=== PATIENT | male | born 1925 | race Caucasian/White ===

== ENCOUNTER 2016-06-28 10:53 | Observation (INO) ==
[2016-06-28 11:36] LABS: Basophils % 0.2 % (0.0-0.8); Eosinophils # 0.1 10*3/uL (0.0-0.87); Eosinophils % 1.2 % (0.00-10.9); Hematocrit 36.7 VOL% (42.0-52.0); Hemoglobin 12.1 GM/DL (14.0-18.0); Immature Granulocytes % 0.8 %; Immature Granulocytes Absolute 0.04 #; Lymphocytes # 1.5 10*3/uL (1.4-4.0); Lymphocytes % 29.5 % (21.2-54.2); Mean Corpuscular Hemoglobin 29 PG (27-34); Mean Corpuscular Volume 86.8 FL (87-102); Mean Platelet Volume 8.7 FL (9.6-12.0); Monocytes # 0.5 10*3/uL (0.11-0.8); Neutrophils % 59.3 % (38.7-73.9); Platelet Count 204 T/CUMM (130-400); Red Blood Count 4.23 MC/CUMM (3.8-5.5)
[2016-06-28 11:38] LABS: Apearance,Urine CLEAR (Clear); Bilirubin,Urine Negative (Negative); Blood, Urine Negative (Negative); Glucose,Urine (UA) Negative (Negative); Ketones,Urine 5 mg/dL (Negative); Nitrite,Urine Negative (Negative); Protein,Urine Negative; RBC,Urine <1 /HPF (0-4); Urine Color Yellow (Yellow); Urine Specific Gravity 1.012 (1.001-1.035); WBC,Urine 1 /HPF (0-6)
--- NOTE | 2016-06-28 11:57 | XRay Report ---
History: Conductive cough Date: 06/28/2016 Study: Chest x-ray PA and lateral Comparison exam: December 04, 2012 chest x-ray The cardiac silhouette is not enlarged. There is no mediastinal mass. There is mild aortic arch calcification. The pulmonary vasculature is not engorged. There is no pleural effusion. There are some occasional scattered emphysematous changes. There is mild platelike scar or subsegmental atelectasis in the right lower lung. There is osteopenia and thoracic spondylosis Impression: Mild platelike subsegmental atelectasis or scar right lower lung. No definite acute process PROCEDURE INTERPRETED AT [facility] DEPARTMENT OF RADIOLOGY Final Report Signed by: Dr. Charmaine Fierro
[2016-06-28 11:58] LABS: Albumin 3.4 G/DL (3.4-5.0); Bilirubin,Total 0.9 MG/DL (0.2-1.0); Osmolality,Calculated 283.4 MOS/KG (273-304); Potassium 3.9 MMOL/L (3.5-5.1); Total Protein 6.9 G/DL (6.4-8.3)
--- NOTE | 2016-06-28 12:28 | Emergency Department Note ---
Arrival - Arrival Chief Complaint: Nausea/Vomiting/Diarrhea Stated Complaint: nausea-vomiting ED Nursing Triage Note: SEEN BY DR ROLAND YESTERDAY-PLACED ON AMOXICILLIN-NOW REPORTS NAUSEA WITHOUT VOMITING-NO SOB NOTED-ALERT Mode of Arrival: Stretcher Source: Patient Time Seen by Provider: 06/28/16 11:04 - History of Present Illness HPI Narrative: 89 y/o white male presents to the ER complaining of cough, congestion, N/V/D, decreased appetite, and generalized weakness. Symptoms starting 1-2 days ago. He was seen by Dr. Roland 2 days ago and started on Amoxil for URI with little improvement. Patient states "I think I need to be admitted into the hospital". Denies chest pain or dyspnea. Past medical history significant for HTN and Crohns. PCP: Dr. Roland GI: Dr. Fierro. Onset (ago): day(s) (2) Severity: mild Quality: aching Allergies/Adverse Reactions: Allergies Allergy/AdvReac Type Severity Reaction Status Date / Time Sulfa (Sulfonamide Allergy Intermediate RASH Verified 08/29/14 08:35 Antibiotics) Home Medications: Home Medications Medication Instructions Recorded Confirmed Type Levothyroxine Tab [Synthroid Tab] 88 mcg PO DAILY@0700 08/29/14 06/28/16 History clonazePAM [Klonopin] 1 mg PO PRN PRN 08/29/14 06/28/16 History rOPINIRole [Requip] 2 mg PO BEDTIME 08/29/14 06/28/16 History Aspirin/Calcium Carbonate/Mag 325 mg PO DAILY 11/06/15 06/28/16 History [Aspirin Buffered 325 mg Tab] Diltiazem Cd Cap [Cardizem CD] 240 mg PO DAILY 11/06/15 06/28/16 History Esomeprazole Magnesium [Nexium] 40 mg PO DAILY 11/06/15 06/28/16 History Fenofibrate [Tricor] 145 mg PO DAILY 11/06/15 06/28/16 History Hydrocortisone [Hydrocortisone Tab] 10 mg PO BID 11/06/15 06/28/16 History Magnesium Chloride [Slow Mag] 64 mg PO DAILY 11/06/15 06/28/16 History Valsartan [Diovan] 160 mg PO DAILY 11/06/15 06/28/16 History clonazePAM TAB [KlonoPIN] 0.5 mg PO BID 11/06/15 06/28/16 History Review of System - Review of System 12 point system: reviewed and no additional remarkable complaints except as stated - Review of System Constitutional: Present: weakness Respiratory: Present: cough Gastrointestinal: Present: nausea, vomiting, diarrhea Medical,Surgical,& Family Hx - Medical History Cardio: History of: Hypertension - Social History Smoking Status: Never smoker Exam Vital Signs: Vital Signs Temperature 97.8 F 07/01/16 07:45 Pulse Rate 80 07/01/16 08:55 Respiratory Rate 20 07/01/16 07:45 Blood Pressure 141/60 07/01/16 08:55 O2 Sat by Pulse Oximetry 96 07/01/16 07:45 - General General appearance: alert, in no apparent distress - ENT ENT exam: Present: normal oropharynx, mucous membranes dry - Chest Chest inspection: Present: normal inspection - Respiratory Respiratory exam: Present: normal lung sounds bilaterally - Cardiovascular Cardiovascular exam: Present: regular rate, normal rhythm, normal heart sounds - Abdominal Exam Abdominal exam: Present: soft, normal bowel sounds. Absent: tenderness - Extremities Exam Extremities exam: Present: normal inspection, full ROM - Back Exam Back exam: Absent: CVA tenderness (R), CVA tenderness (L) - Neurological Exam Neurological exam: Present: alert, oriented X3, CN II-XII intact, normal gait - Psychiatric Psychiatric exam: Present: normal affect, normal mood - Skin Skin exam: Present: warm, dry Course Course Narrative: Patient eating on ice chips in room without difficulty. - Consultations Consultation #1: Dr. Redding Time: 12:50 (Will admit to Dr. Redding ) Results - Labs CBC & BMP: 07/01/16 05:23 06/29/16 09:41 Lab Results: I have reviewed the patients labs Labs: UA: WNL - Diagnostic Findings Procedure: X-ray: image reviewed by me, report reviewed by me (CXR: no acute abnormality ) Disposition Clinical Impression: Cough, Vomiting, Weakness, Dehydration Disposition: Still a Patient Condition: Stable
[2016-06-28] MEDS ORDERED: cefTRIAXone 1,000 MG in SODIUM CHLORIDE 0.9% 100 ML IV STA (12:37)
[2016-06-28] MEDS ORDERED: cefTRIAXone 1,000 MG VIAL ONE (12:47)
[2016-06-28] MEDS ORDERED: SODIUM CHLORIDE 0.9% 1,000 ML IV SCH (13:00)
[2016-06-28] MEDS ORDERED: ONDANSETRON 4 MG/2 ML VIAL IV PRN (14:10)
[2016-06-28] MEDS ORDERED: LORazepam 2 MG/1 ML VIAL IV PRN (14:20)
[2016-06-28] MEDS: rOPINIRole 1 MG TABLET PO SCH ×2 (14:57→20:28)
[2016-06-28] MEDS: HYDROCORTISONE 10 MG TABLET PO SCH (20:28)
[2016-06-29] MEDS: LEVOTHYROXINE 88 MCG TABLET PO SCH (06:04)
[2016-06-29] MEDS: HYDROCORTISONE 10 MG TABLET PO SCH ×2 (08:17→20:15)
[2016-06-29] MEDS: FENOFIBRATE 145 MG TABLET PO SCH (08:17)
[2016-06-29] MEDS: VALSARTAN 160 MG TABLET PO SCH (08:17)
[2016-06-29] MEDS: PANTOPRAZOLE 40 MG TABLET PO SCH (08:17)
[2016-06-29] MEDS: DILTIAZEM CD 240 MG CAPSULE PO SCH (08:17)
[2016-06-29] MEDS: rOPINIRole 1 MG TABLET PO SCH ×2 (08:17→20:15)
[2016-06-29] MEDS: ASPIRIN EC 325 MG TABLET PO SCH (08:17)
[2016-06-29] MEDS ORDERED: MAGNESIUM CHLORIDE 64 MG TABLET PO SCH (09:00)
[2016-06-29] MEDS ORDERED: POTASSIUM CHLORIDE 20 MEQ TABLET PO ONE (09:29)
[2016-06-29] MEDS: SODIUM CHLORIDE 0.9% 1,000 ML IV SCH ×2 (09:34→20:14)
[2016-06-29 10:20] LABS: Calcium 8.4 MG/DL (8.5-10.1); Magnesium 1.6 MG/DL (1.8-2.4); Osmolality,Calculated 284.4 MOS/KG (273-304); Potassium 3.9 MMOL/L (3.5-5.1)
--- NOTE | 2016-06-29 11:23 | Family Practice History&Phys ---
Assessment and Plan (1) Dehydration Status: Acute Assessment and plan: 06/29/2016. I am going to give him another liter of fluid and see how he does today with eating. Current Visit: Yes (2) Vomiting Status: Acute Assessment and plan: 06/29/1978: No vomiting at this time denies actually any nausea as well Current Visit: Yes (3) Weakness Status: Acute Assessment and plan: 06/29/2016: Some stronger this morning but will watch for several more hours and give him some IV fluids Current Visit: Yes History of Present Illness Chief complaint: Nausea and vomiting, weakness History of present illness: Mr. Ramirez is a 89 year old male Patient of Dr. Roland, came to the emergency room last night with complaints of generalized weakness and recent nausea vomiting as well as diarrhea. He had decreased appetite and some symptoms of dehydration. His lab revealed a normal CBC except slight low H&H 12 and 36. BMP this morning was okay except for magnesium 1.6. We will supplement this. Patient was admitted last night and started on IV fluids which were then subsequently DC'd. We are going to give him some more fluids today and put him on a regular diet to see if he tolerates this. If he continues to improve will hopefully discharge later today if he stays a week may keep him another 23 hours. Does live by himself in an apartment and would be high risk for re-admission if not monitored closely. Home Medications Medication Instructions Recorded Confirmed Type Levothyroxine Tab [Synthroid Tab] 88 mcg PO DAILY@0700 08/29/14 06/28/16 History clonazePAM [Klonopin] 1 mg PO PRN PRN 08/29/14 06/28/16 History rOPINIRole [Requip] 2 mg PO BEDTIME 08/29/14 06/28/16 History Aspirin/Calcium Carbonate/Mag 325 mg PO DAILY 11/06/15 06/28/16 History [Aspirin Buffered 325 mg Tab] Diltiazem Cd Cap [Cardizem CD] 240 mg PO DAILY 11/06/15 06/28/16 History Esomeprazole Magnesium [Nexium] 40 mg PO DAILY 11/06/15 06/28/16 History Fenofibrate [Tricor] 145 mg PO DAILY 11/06/15 06/28/16 History Hydrocortisone [Hydrocortisone Tab] 10 mg PO BID 11/06/15 06/28/16 History Magnesium Chloride [Slow Mag] 64 mg PO DAILY 11/06/15 06/28/16 History Valsartan [Diovan] 160 mg PO DAILY 11/06/15 06/28/16 History clonazePAM TAB [KlonoPIN] 0.5 mg PO BID 11/06/15 06/28/16 History Allergies Allergy/AdvReac Type Severity Reaction Status Date / Time Sulfa (Sulfonamide Allergy Intermediate RASH Verified 08/29/14 08:35 Antibiotics) - EENT Eyes: Absent: blurry vision Nose, mouth and throat: Absent: dysphagia - Cardiovascular Cardiovascular: Absent: chest pain at rest - Respiratory Respiratory: Present: cough (Only occasional but no shortness of breath. This is chronic). Absent: dyspnea, wheezing - Gastrointestinal Gastrointestinal: Absent: abdominal pain (But positive nausea) - Genitourinary Genitourinary: Absent: difficulty urinating - Musculoskeletal Musculoskeletal: Absent: arthralgias - Neurological Neurological: Absent: abnormal speech - Endocrine Endocrine: Absent: cold intolerance Medical,Surgical,& Family Hx - Medical History Cardio: History of: Hypertension Endocrine: History of: Thyroid Disorder Gastrointestinal: History of: GERD, GI Problems (chron's disease) - Social History Smoking Status: Never smoker Frequency of Alcohol Use: None Type of Drug Use: None Exam - Constitutional Vitals: Period Temp Pulse Resp BP Sys/Ascencio Pulse Ox Last 24 Hr 97 F-97.9 F 70-85 16-20 134-170/52-75 94-97 Generally somewhat weak but alert and oriented. Very cognitive for his age HEENT neck supple trachea midline mucous membranes are somewhat moist. Cardiovascular rate regular no gallop or rub, 1/6 systolic ejection murmur Lungs generally clear but somewhat decreased breath sounds, patient had a bowel movement this morning Abdomen soft nondistended positive bowel sounds Extremities no clubbing cyanosis or edema Results - Labs CBC & BMP: 06/28/16 11:19 06/29/16 09:41
[2016-06-29] MEDS: MAGNESIUM CHLORIDE 64 MG TABLET PO SCH (20:15)
[2016-06-30] MEDS: LEVOTHYROXINE 88 MCG TABLET PO SCH (06:00)
[2016-06-30] MEDS: SODIUM CHLORIDE 0.9% 1,000 ML IV SCH ×3 (06:14→17:25)
--- NOTE | 2016-06-30 08:18 | Family Practice Progress Note ---
Family Practice - PN: Subj Interval history: 89-year-old gentleman was admitted over the weekend with weakness and diarrhea. Patient has history of Crohn's disease and they somehow changed his dosing of his Remicade has not had a dose yet this month. He generally gets at the first week of each month. I am certain this is why his diarrhea worsened. She is also had a previous pituitary adenoma resection and is on Cortef 10 mg twice daily. I am going to start him on some IV Cortef and see if that does not help him feel better. He states he has not been eating because they have not been giving him any food. This will be remedied. Exam (Progress Note) - Constitutional Vitals: Period Temp Pulse Resp BP Sys/Ascencio Pulse Ox Last 24 Hr 96.6 F-97.8 F 64-81 18-20 104-144/52-65 95-97 Exam: Objective the well-developed gentleman is awake alert and able able to give good history. He is not confused. Cardiovascular: Heart rates are regular with normal murmurs or gallops. Respiratory: Lungs clear to auscultation bilaterally. Abdomen: He has some minimal left mid abdominal tenderness directly but no rebound guarding are noted. Neuro: Patient has his normal sensorium. Results - Labs CBC & BMP: 06/28/16 11:19 06/29/16 09:41 Lab Results: I have reviewed the past 24 hour labs Assessment and Plan (1) Intractable diarrhea Status: Acute Assessment and plan: 06/30/2016: With patient's panhypopituitary is and I think we need to give him some IV Solu-Cortef. Will advance his diet. Current Visit: Yes (2) Crohns disease Status: Acute Assessment and plan: 06/30/2016: Patient needs his next dose of Remicade. Current Visit: Yes
[2016-06-30] MEDS: FENOFIBRATE 145 MG TABLET PO SCH (08:30)
[2016-06-30] MEDS: DILTIAZEM CD 240 MG CAPSULE PO SCH (08:30)
[2016-06-30] MEDS: MAGNESIUM CHLORIDE 64 MG TABLET PO SCH ×2 (08:30→20:36)
[2016-06-30] MEDS: rOPINIRole 1 MG TABLET PO SCH ×2 (08:30→20:36)
[2016-06-30] MEDS: PANTOPRAZOLE 40 MG TABLET PO SCH (08:30)
[2016-06-30] MEDS: ASPIRIN EC 325 MG TABLET PO SCH (08:31)
[2016-06-30] MEDS: HYDROCORTISONE 10 MG TABLET PO SCH ×2 (08:31→20:36)
[2016-06-30] MEDS: VALSARTAN 160 MG TABLET PO SCH (08:34)
[2016-06-30 08:58] LABS: Basophils % 0.1 % (0.0-0.8); Eosinophils # 0.2 10*3/uL (0.0-0.87); Eosinophils % 3.1 % (0.00-10.9); Hematocrit 34.6 VOL% (42.0-52.0); Hemoglobin 11.5 GM/DL (14.0-18.0); Immature Granulocytes % 1.4 %; Lymphocytes # 3.5 10*3/uL (1.4-4.0); Lymphocytes % 47.7 % (21.2-54.2); Mean Corpuscular HGB Conc 33.2 GM/DL (32-36); Mean Corpuscular Hemoglobin 29 PG (27-34); Mean Corpuscular Volume 85.6 FL (87-102); Mean Platelet Volume 8.5 FL (9.6-12.0); Monocytes # 0.7 10*3/uL (0.11-0.8); Monocytes % 9.2 % (1.7-12.7); Neutrophils # 2.9 10*3/uL (1.4-7.4); Neutrophils % 38.5 % (38.7-73.9); Platelet Count 285 T/CUMM (130-400); Red Blood Count 4.04 MC/CUMM (3.8-5.5); Red Cell Distribution Width 13.9 % (9.3-17.3); White Blood Count 7.4 T/CUMM (4-12)
[2016-06-30 09:28] LABS: Band Neutrophils 1 % (0-10); Eosinophils 4 % (0-10); Lymphocytes 51 % (20-55); Segmented Neutrophils 33 % (50-85); Total Cells Counted 100
[2016-06-30 09:29] LABS: Hypochromasia Slight; Platelet Estimate Adequate
[2016-06-30 10:10] LABS: Sedimentation Rate-Westergren 51 MM/HR (0-20)
--- NOTE | 2016-06-30 13:52 | XRay Report ---
XR chest 2V Date: 06/30/2016 8:11 AM History: Febrile illness Comparison: 06/28/2016 Technique: PA and lateral chest Findings: The heart is normal in size with diffuse arterial calcifications. Chronic scarring in the lungs with residual atelectasis. Stable mediastinum and osseous structures. Impression: Chronic scarring in the lungs with residual atelectasis in the lungs. No significant change in the appearance of the chest. Diffuse arterial calcifications are noted. PROCEDURE INTERPRETED AT [facility] DEPARTMENT OF RADIOLOGY Final Report Signed by: Dr. Asuncion Ortiz
[2016-06-30] MEDS ORDERED: clonazePAM 0.5 MG TABLET PO PRN (16:54)
[2016-06-30] MEDS: clonazePAM 0.5 MG TABLET PO SCH (20:36)
[2016-07-01] MEDS: SODIUM CHLORIDE 0.9% 1,000 ML IV SCH (03:23)
[2016-07-01 05:59] LABS: Basophils % 0.4 % (0.0-0.8); Eosinophils # 0.2 10*3/uL (0.0-0.87); Eosinophils % 3.2 % (0.00-10.9); Hematocrit 31.4 VOL% (42.0-52.0); Hemoglobin 10.6 GM/DL (14.0-18.0); Immature Granulocytes % 1.7 %; Immature Granulocytes Absolute 0.08 #; Lymphocytes % 41.6 % (21.2-54.2); Mean Corpuscular HGB Conc 33.8 GM/DL (32-36); Mean Corpuscular Hemoglobin 28 PG (27-34); Mean Platelet Volume 8.7 FL (9.6-12.0); Monocytes # 0.5 10*3/uL (0.11-0.8); Monocytes % 11.3 % (1.7-12.7); Neutrophils % 41.8 % (38.7-73.9); Platelet Count 261 T/CUMM (130-400); Red Blood Count 3.74 MC/CUMM (3.8-5.5); Red Cell Distribution Width 14.1 % (9.3-17.3); White Blood Count 4.7 T/CUMM (4-12)
[2016-07-01] MEDS: LEVOTHYROXINE 88 MCG TABLET PO SCH (06:24)
--- NOTE | 2016-07-01 07:15 | Discharge Summary ---
Hospital Course - Hospital Course Hospital Course: Patient is a 89-year-old white male was admitted through the emergency room with increasing weakness and diarrhea. Patient has history of Crohn's disease and apparently his Remicade injection has been delayed for some reason. 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 Patient was started on IV Solu-Cortef and I note that his blood pressure improved at that point patient started feeling much better. He was rehydrated with IV fluids and was tolerating regular diet today before discharge. He was anxious to go home and is scheduled to get his Remicade on 07/03/2016. I asked nurse call the infusion center and see if I could administer that today instead of waiting consent from her trip back to here. Diagnosis - Discharge Diagnosis (1) Intractable diarrhea Status: Acute (2) Crohns disease Status: Acute Discharge Plan - Discharge Data Disposition: Disch To Home/Self Care Condition at Discharge: Stable Discharge Diet: advance to your usual diet Activity: resume usual activities as tolerated Hygiene: no restrictions Weight Bearing at Discharge: full weight bearing Contact your physician if you experience:: fever over 101 - Discharge Medications Continue rOPINIRole [Requip] 2 mg PO BEDTIME Levothyroxine Tab [Synthroid Tab] 88 mcg PO DAILY@0700 clonazePAM [Klonopin] 1 mg PO PRN PRN PRN Reason: Restlessness clonazePAM TAB [KlonoPIN] 0.5 mg PO BID Valsartan [Diovan] 160 mg PO DAILY Magnesium Chloride [Slow Mag] 64 mg PO DAILY Hydrocortisone [Hydrocortisone Tab] 10 mg PO BID Fenofibrate [Tricor] 145 mg PO DAILY Esomeprazole Magnesium [Nexium] 40 mg PO DAILY Diltiazem Cd Cap [Cardizem CD] 240 mg PO DAILY Aspirin/Calcium Carbonate/Mag [Aspirin Buffered 325 mg Tab] 325 mg PO DAILY - Follow Up or Referral Follow Up: Ilia Roland MD [Primary Care Provider] - 2 Weeks - Forms/Instructions Exam - Constitutional Vitals: Period Temp Pulse Resp BP Sys/Ascencio Pulse Ox Last 24 Hr 97.3 F-98.0 F 68-82 16-20 129-157/55-67 94-99 Exam: Objective reveals a well-developed gentleman is awake alert and able able to give good history. He is not confused. He is anxious to go home. His son Taurus is in the room with him this morning. Cardiovascular: Heart rates are regular with normal murmurs or gallops. Respiratory: Lungs clear to auscultation bilaterally. Abdomen: He has some minimal left mid abdominal tenderness directly but no rebound guarding are noted. Patient's not had normal bowel sounds. Neuro: Patient has his normal sensorium. Discharge Results Procedures and tests throughout hospitalization: Pending Orders 06/30/16 08:11 Stool Culture Routine Stool for WBCs Routine stool [C. Diff Toxins A & B] Routine Labs on day of discharge: Labs from last 24 hours 07/01/16 06/30/16 06/30/16 05:23 08:28 08:28 WBC 4.7 D 7.4 D RBC 3.74 L 4.04 Hgb 10.6 L 11.5 L Hct 31.4 L 34.6 L MCV 84.0 L 85.6 L MCH 28 29 MCHC 33.8 33.2 RDW 14.1 13.9 Plt Count 261 285 D MPV 8.7 L 8.5 L Neut % (Auto) 41.8 38.5 L Lymph % (Auto) 41.6 47.7 [place] % (Auto) 11.3 9.2 Eos % (Auto) 3.2 3.1 Baso % (Auto) 0.4 0.1 Neut # (Auto) 2.0 2.9 Lymph # (Auto) 2.0 3.5 [place] # (Auto) 0.5 0.7 Eos # (Auto) 0.2 0.2 Baso # (Auto) 0.0 0.0 Total Counted 100 Immature Gran % 1.7 1.4 Nucleated RBC % 0.0 0.0 Immature Gran # 0.08 0.10 Segmented Neutrophils 33 L Band Neutrophils 1 Lymphocytes 51 Monocytes 11 Eosinophils 4 Nucleated RBCs # 0.00 0.00 Platelet Estimate Adequate Hypochromasia Slight ESR Westergren 51 H C-Reactive Protein 2.73 H No acute abnormality seen DS: Provider Date of admission: 06/28/16 12:44 Primary care physician: Ilia Roland MD Attending physician on admission: Maninder Redding DO Discharging clinician: Ilia Roland MD Expected date of discharge: 07/01/16
[2016-07-01] MEDS: MAGNESIUM CHLORIDE 64 MG TABLET PO SCH (08:53)
[2016-07-01] MEDS: VALSARTAN 160 MG TABLET PO SCH (08:54)
[2016-07-01] MEDS: HYDROCORTISONE 10 MG TABLET PO SCH (08:54)
[2016-07-01] MEDS: clonazePAM 0.5 MG TABLET PO SCH (08:54)
[2016-07-01] MEDS: ASPIRIN EC 325 MG TABLET PO SCH (08:54)
[2016-07-01] MEDS: rOPINIRole 1 MG TABLET PO SCH (08:54)
[2016-07-01] MEDS: PANTOPRAZOLE 40 MG TABLET PO SCH (08:54)
[2016-07-01] MEDS: DILTIAZEM CD 240 MG CAPSULE PO SCH (08:55)
[2016-07-01] MEDS: FENOFIBRATE 145 MG TABLET PO SCH (09:03)
[2016-07-01 09:04] VITALS: BP 141/60
== END 2016-07-01 11:15 | disposition home or self-care (01) ==
LOC: EDUNIT# → EDBD → N.EDINP 10:53 → N.ED 10:53 → N.5E 14:09
PROVIDERS: ADMIT Family Medicine; ATTEND Family Medicine